=== PATIENT | male | born 1950 | race Caucasian/White ===

== ENCOUNTER 2017-08-27 18:47 | Inpatient (IN) ==
[2017-08-28] MEDS ORDERED: *HR* Heparin 5,000 UNIT/ML VIAL IVP ONE (08:32)
[2017-08-28] MEDS ORDERED: *HR* Heparin 5,000 UNIT/ML VIAL IVP PRN ×2 (08:32)
[2017-08-28] MEDS ORDERED: Heparin 25,000 UNIT/500 ML D5W 25,000 UNIT/500 ML BAG IVC SCH (08:45)
--- NOTE | 2017-08-28 12:23 | Event Note ---
Date of Encounter: 08/28/17 Time of Encounter: 12:18 She was seen and examined. I agree with the progress note as written by the resident physician The patient was transferred from [facility] with an episode of dizziness and was found to have SVT with rates up to the 180s. Was given adenosine 6 mg and then 12 mg. The patient's laboratory workup was significant for 0.05 for which he was started on a heparin drip and sent to our facility where cardiology was consulted. I do not see any repeat of his troponins. The patient has been complaining of dizziness yesterday but no chest pain. He denies feeling palpitations. He had outpatient workup done by his PCP and eventually ended up in the ED. Currently the patient is in normal sinus rhythm. GEN: NAD CVS: RRR. S1, S2, systolic murmur heard throughout 04/14 RESP: CTAB ABD: Soft, NT, ND, +BS EXT: No edema. 2+ DP. No rashes NEURO: Nonfocal We will keep on heparin drip for now. Hemodynamically stable and is in normal sinus rhythm patient had elevated creatinine from [facility] Stat troponins, BMP, magnesium level Echo done last month showed EF 60% with mild left ventricular diastolic dysfunction and moderate aortic stenosis Further recommendations from cardiology Patient can be discharged later if no further testing is warranted from cardiology standpoint
[2017-08-28 13:13] LABS: Hematocrit 37.3 % (37.5-50.1); Hemoglobin 12.3 g/dL (12.9-16.9); Mean Corpuscular Hemoglobin 28.3 pg (28.0-33.3); Mean Corpuscular Volume 85.9 fL (83.0-100.0); Mean Platelet Volume 9.7 fL (9.4-12.4); Platelet Count 177 K/mcL (140-400); Red Blood Count 4.34 M/mcL (4.19-5.50); Red Cell Distribution Width 15.3 % (11.5-14.5)
[2017-08-28 13:27] LABS: Heparin anti-factor XA UFH 0.29 IU/mL (0.30-0.70); INR 1.2; Prothrombin Time 13.6 Seconds (9.4-12.1)
[2017-08-28] MEDS ORDERED: 0.9 % Sodium Chloride 1,000 ML IVC SCH (13:30)
[2017-08-28 13:39] LABS: BUN/Creatinine Ratio 26 (6-26); Blood Urea Nitrogen 22 mg/dL (8-23); Calcium 8.8 mg/dL (8.6-10.3); Carbon Dioxide 27 mEq/L (23-29); Chloride 109 mEq/L (98-107); Glucose 82 mg/dL (70-105); Magnesium 2.2 mg/dL (1.6-2.6); Osmolality,Calculated 296 (280-300); Potassium 3.7 mEq/L (3.5-5.1); Sodium 142 mEq/L (136-145); eGFR For African Americans > 60 (> 60); eGFR For Non-African Americans > 60 (> 60)
--- NOTE | 2017-08-28 13:58 | Cardiology Consult Note ---
<Jerome Agarwal - Last Filed: 08/28/17 15:33> Date of Encounter: 08/28/17 - Attending Attestation I have personally performed a face to face evaluation on this patient. I have reviewed and agree with the care plan. 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 He sat down for several minutes, with resolution of symptoms, He returned to work symptoms reoccurred, and he had to sit down again, became diaphoretic, did not feel he could resume working, went home and elevated his feet with improvement in symptoms. He denies chest pain, pressure and palpitations. 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 He continued to feel dizzy, sought care in [facility], where initial EKG showed heart rate in the 150s, response to vagal manuvers, but did convert to NSR with IV adenosine. He is asymptomatic at present. ROS: reviewed PMH: Reviewed PE: pt seen and examined, agree with findings as documented. IMP/Plan: 1. SVT: provoked by dehydration, exposure to noxious exhaust, resolved with IV adenosine, has not reoccurred. 2. Elevated troponin: Minimal elevation of unclear significance, will order Lexiscan cardiolyte in AM to eval ischemic substrate. 3. - moderate at last echo, peak to peak gradient 27, may be contributing to symptoms, await result of stress imaging. Assessment and Plan Discussion w patient/family: The assessment and plan as outlined above was discussed with the patient and/or family members who expressed understanding and agreement. All questions were answered. Thank you for involving us in the care of your patient. Please call with any questions. History of Present Illness History of present illness: Mr. Salomon is a 67 year old male Medications and Allergies Atorvastatin [Lipitor] 40 mg PO HS 08/27/17 [History] Ferrous Sulfate [Iron] 325 mg PO DAILY 08/28/17 [History] 3 Allergy/AdvReac Type Severity Reaction Status Date / Time No Known Allergies Allergy Verified 08/27/17 19:13 All Systems Review: The remainder of the systems were reviewed and are negative Results 08/28/17 12:52 08/28/17 12:52 Lab Results 08/28/17 08/28/17 08/28/17 12:52 12:52 12:52 WBC 6.0 Hgb 12.3 L Hct 37.3 L Plt Count 177 INR 1.2 Sodium 142 Potassium 3.7 D Chloride 109 H Carbon Dioxide 27 BUN 22 Creatinine 0.84 Glucose 82 Calcium 8.8 Magnesium 2.2 Troponin I 0.10 H* TSH 1.568 <Teena Gordon L - Last Filed: 08/28/17 15:57> Date of Encounter: 08/28/17 Time of Encounter: 13:30 Assessment and Plan (1) Supraventricular tachycardia Current Visit: Yes Status: Acute Patient presented to the ED with complaints of fatigue, dizziness. Initial ECG demonstrated SVT. Failed vagal maneuvers, converted to NSR after IV adenosine. Will start BB. Continue to monitor telemetry overnight. (2) Elevated troponin Current Visit: Yes Status: Acute Troponin 0.05, 0.10, 0.13 in the setting of LAZARUS and SVT. Doubt ACS. No prior hx of CAD. Reports negative remote stress test >20 years ago. Discuss[address] with Dr. Agarwal, plan for non-exercise stress in AM. (3) Aortic stenosis Current Visit: Yes Status: Acute Known hx of moderate . Has been following with Dr. Manuel yearly. Yearly TTE shows stable . EF preserved. Qualifiers: Cardiac valve disease etiology: etiology unspecified Qualified Code(s): I35.0 - Nonrheumatic aortic (valve) stenosis Discussion w patient/family: The assessment and plan as outlined above was discussed with the patient and/or family members who expressed understanding and agreement. All questions were answered. Thank you for involving us in the care of your patient. Please call with any questions. History of Present Illness Consult date: 08/28/17 Requesting physician: Tay Ahn Consult reason: SVT Chief complaint: Fatigue, dizziness History of present illness: Mr. Salomon is a 67 year old male with PMHx significant for aortic stenosis and HLD who presented to the ED with complaints of dizziness and lightheadedness that started yesterday at work. He reports he left work early due to symptoms. Over the past week he has been performing more strenuous tasks at work and has felt more worn out. He notes that his blood pressure was low with SBP in the 90s and HR was in the 150's. Symptoms would improve when laying flat with his feet elevated. He continued to feel worse yesterday evening which prompted him to go to [place] [facility]. Upon arrival, ECG showed SVT, he failed vagal maneuvers and then was given adenosine which slowed HR and has maintained NSR. He was also noted to have LAZARUS upon admission and troponin was 0.05--> 0.13 -->0.10 Prior CV testing: TTE 07/21/17: LVEF 60%, heavily calcified AV leaflets, moderate (MG=27 mmHg ), mild MR, no PH Reports remote history of normal stress test. Past Med Surg Social Fam HX - Past Medical History Attestation: Yes The following information was validated with the patient. 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 [place] Psychiatric history: no psych history - Past Surgical History Additional surgical history: Right shoulder and knee - Social History Smoking Status: Former smoker Smokeless Tobacco Status: No Alcohol use: none Drug use: none - Family History Mother Living Status: Hx Family Cardiac Disorders: Yes ([place] with stents) All Systems Review: The remainder of the systems were reviewed and are negative - Cardiovascular Cardiovascular: as per HPI Physical Examination General: Conversant, No Apparent Distress HEENT: Atraumatic, Normocephaly, Mucus Membranes Moist Cardiac: Reg Rate and Rhythm, Normal S1 and S2 Lungs: Normal Breath Sounds Neuro: Alert and responsive Abdomen: Soft Skin: No rashes noted on visualized skin Musculoskeletal: No Chest Wall Tenderness Extremities: No Edema, Normal Pulses Results 08/28/17 12:52 08/28/17 12:52 Lab Results 08/28/17 08/28/17 08/28/17 12:52 12:52 12:52 WBC 6.0 Hgb 12.3 L Hct 37.3 L Plt Count 177 INR 1.2 Sodium 142 Potassium 3.7 D Chloride 109 H Carbon Dioxide 27 BUN 22 Creatinine 0.84 Glucose 82 Calcium 8.8 Magnesium 2.2 Troponin I 0.10 H* Active Medications Heparin Sodium (Porcine) (Heparin) 5,800 unit 70 unit/kg (5800 unit) IVP Q6HR PRN PRN Reason: SEE COMMENTS Stop: 02/27/18 08:33 Heparin Sodium (Porcine) (Heparin) 2,900 unit 35 unit/kg (2900 unit) IVP Q6H PRN PRN Reason: SEE COMMENTS Stop: 02/27/18 08:33 Heparin Sodium/Dextrose (Heparin 25,000 Unit/500 Ml D5w) 25,000 unit in 500 mls @ 23.242 mls/hr IVC .[id number] BHAVANA; 14 UNIT/KG/HR PRN Reason: Protocol Stop: 02/27/18 08:46 Sodium Chloride (0.9 % Sodium Chloride) 1,000 mls @ 100 mls/hr IVC .Q10H BHAVANA Stop: 08/28/17 23:29 - Imaging and Cardiology Echo: report reviewed Other Results: 12 hour tele: avg HR=70 SR. No events. - EKG Interpretation EKG results cardiology: personally reviewed
[2017-08-28 14:07] LABS: Thyroid Stimulating Hormone 1.568 mcIU/mL (0.340-5.600)
--- NOTE | 2017-08-28 16:38 | Internal Med Progress Note ---
Date of Encounter: 08/28/17 Time of Encounter: 16:36 - Assessment and plan (1) Supraventricular tachycardia Current Visit: Yes Status: Resolved Assessment and plan: 08/28- Patient was treated for SVT at [facility] and transferred to [facility] for cardiology consult. He is no longer in SVT and is asymptomatic. Heparin drip running. Last troponin 0.1. Cardiology plans for Stress test in AM. Will continue to trend labs and monitor patient. (2) Elevated troponin Current Visit: Yes Status: Acute Assessment and plan: 08/28- Last troponin 0.1. Patient asymptomatic, cardiology consulted, will continue to monitor. (3) Aortic stenosis Current Visit: Yes Status: Chronic Assessment and plan: 08/28- Patient has documented findings of aortic calcification and stenosis on echocardiogram. Intervention has not been recommended at this point. Qualifiers: Cardiac valve disease etiology: etiology unspecified Qualified Code(s): I35.0 - Nonrheumatic aortic (valve) stenosis - Time Spent With Patient Total time spent is greater than 50% in coordination of care (as documented) at patient's floor/unit and/or counseling patient: - Subjective Interval history: Patient was admitted for SVT that was converted to sinus rhythm with adenosine. Seen and examined this morning. Patient denies chest pain, shortness of breath, or lightheadedness this morning. He denies any other complaints or concerns. - Constitutional Vitals: Temp Pulse Resp BP Pulse Ox 97.7 F 93 20 103/64 98 08/28/17 16:25 08/28/17 16:25 08/28/17 16:25 08/28/17 16:25 08/28/17 16:25 Exam: Patient in no acute distress Alert and Oriented x 3 Heart in regular rate and rhythm, systolic murmur likely aortic stenosis, no mark or rub Lungs clear to auscultation Abdomen soft and non tender Skin warm and dry Legs non edematous Internal Medicine: Result - Labs CBC & Chem 7: 08/28/17 12:52 08/28/17 12:52 Labs: Short CBC 08/28/17 Range/Units 12:52 WBC 6.0 (4.3-11.1) K/mcL Hgb 12.3 L (12.9-16.9) g/dL Hct 37.3 L (37.5-50.1) % Plt Count 177 (140-400) K/mcL BMP 08/28/17 12:52 Sodium 142 Potassium 3.7 D Chloride 109 H Carbon Dioxide 27 BUN 22 Creatinine 0.84 Glucose 82 Calcium 8.8 Cardiac Enzymes 08/28/17 Range/Units 12:52 Troponin I 0.10 H* (< 0.04) ng/mL - ABG Interpretation ABG results: PT/INR, D-dimer PT 13.6 Seconds (9.4-12.1) H 08/28/17 12:52 Consult Discharge Plan - Plan Referrals: NONE,PCP [Primary Care Provider] -
[2017-08-28 17:52] LABS: Activated Partial Thrombo Time 33.3 Seconds (26.0-36.0); Heparin anti-factor XA UFH 0.04 IU/mL (0.30-0.70); INR 1.2
[2017-08-28 17:54] LABS: Basophils % 0.4 %; Eosinophils # 0.1 K/mcL (0.0-0.6); Eosinophils % 0.8 %; Hematocrit 34.9 % (37.5-50.1); Hemoglobin 11.6 g/dL (12.9-16.9); Immature Granulocytes % 0.1 % (0-4); Immature Platelets 2.1 % (1.1-6.1); Lymphocytes # 1.7 K/mcL (0.6-4.6); Lymphocytes % 22.9 %; Mean Corpuscular HGB Conc 33.2 g/dL (31.6-35.5); Mean Corpuscular Hemoglobin 28.2 pg (28.0-33.3); Mean Corpuscular Volume 84.9 fL (83.0-100.0); Mean Platelet Volume 9.6 fL (9.4-12.4); Monocytes # 1.2 K/mcL (0.0-1.3); Monocytes % 16.4 %; Neutrophils # 4.3 K/mcL (1.6-8.9); Platelet Count 166 K/mcL (140-400); Red Blood Count 4.11 M/mcL (4.19-5.50); Red Cell Distribution Width 15.2 % (11.5-14.5); Segmented Neutrophils % 59.4 %
[2017-08-28] MEDS: Metoprolol XL (24 HR) Succ 25 MG TAB.ER.24H PO SCH (19:00)
[2017-08-28 23:23] LABS: BUN/Creatinine Ratio 25 (6-26); Blood Urea Nitrogen 24 mg/dL (8-23); Calcium 8.5 mg/dL (8.6-10.3); Carbon Dioxide 22 mEq/L (23-29); Chloride 110 mEq/L (98-107); Glucose 88 mg/dL (70-105); Osmolality,Calculated 297 (280-300); Potassium 3.4 mEq/L (3.5-5.1); Sodium 142 mEq/L (136-145); eGFR For African Americans > 60 (> 60); eGFR For Non-African Americans > 60 (> 60)
[2017-08-28 23:24] LABS: Troponin I 0.12 ng/mL (< 0.04)
[2017-08-29] MEDS ORDERED: Regadenoson 0.4 MG/5 ML SYRINGE IVP ONE (06:47)
[2017-08-29 06:59] LABS: BUN/Creatinine Ratio 26 (6-26); Blood Urea Nitrogen 19 mg/dL (8-23); Calcium 8.4 mg/dL (8.6-10.3); Carbon Dioxide 25 mEq/L (23-29); Chloride 108 mEq/L (98-107); Glucose 93 mg/dL (70-105); Osmolality,Calculated 290 (280-300); Potassium 4.1 mEq/L (3.5-5.1); Sodium 139 mEq/L (136-145); eGFR For African Americans > 60 (> 60); eGFR For Non-African Americans > 60 (> 60)
[2017-08-29] MEDS: Metoprolol XL (24 HR) Succ 25 MG TAB.ER.24H PO SCH (12:13)
--- NOTE | 2017-08-29 14:08 | Cardiology Progress Note ---
Date of Encounter: 08/29/17 Time of Encounter: 14:06 Assessment and Plan (1) Abnormal stress test Current Visit: Yes Status: Acute Stress test today--Inferior wall artifact, unable to rule out ischemia. Final results have not yet crossed over, but made aware by reading residential program coordinator. Given SVT, troponin elevation and unable to rule out inferior ischemia on stress , recommend [facility]. R/B/A discussed. Pt agreeable. Plan to keep inpt for [facility] Thursday. Continue to follow. (2) Aortic stenosis Current Visit: Yes Status: Chronic Known hx of moderate . Has been following with Dr. Manuel yearly. Yearly TTE shows stable . EF preserved. Qualifiers: Cardiac valve disease etiology: etiology unspecified Qualified Code(s): I35.0 - Nonrheumatic aortic (valve) stenosis (3) SVT (supraventricular tachycardia) Current Visit: No Status: Acute Patient presented to the ED with complaints of fatigue, dizziness. Initial ECG demonstrated SVT. Failed vagal maneuvers, converted to NSR after IV adenosine. Started BB. No recurrence noted on telemetry. (4) Elevated troponin Current Visit: Yes Status: Acute Troponin 0.05, 0.10, 0.13 in the setting of LAZARUS and SVT. Doubt ACS. No prior hx of CAD. Reports negative remote stress test >20 years ago. Completed stress test today--cannot rule out inferior ischemia. Plan for [facility] Thursday, as above. Discussion w patient/family: The assessment and plan as outlined above was discussed with the patient and/or family members who expressed understanding and agreement. All questions were answered. Thank you for involving us in the care of your patient. Please call with any questions. I will discuss all the above with Dr. Agarwal and make changes as necessary. Subjective Principal diagnosis: SVT, elevated troponin Interval history: Stress test today--paged by reading residential program coordinator that there is inferior wall artifact, unable to rule out ischemia in this area. Pt denies chest pain, dyspnea or palpitations overnight. No recurrent SVT noted on tele. Objective Vital Signs, Last 4 Hours Temp Pulse Resp BP Pulse Ox 08/29/17 10:52 98.1 F 62 16 126/77 97 Vital Signs Temp Pulse Resp BP Pulse Ox 08/29/17 10:52 98.1 F 62 16 126/77 97 08/29/17 08:01 98.1 F 66 16 114/74 96 08/29/17 03:35 98.6 F 75 16 107/65 96 08/28/17 23:23 97.8 F 74 16 89/53 96 08/28/17 19:00 98.5 F 70 16 93/61 97 08/28/17 16:25 97.7 F 93 20 103/64 98 Intake and Output 08/28/17 08/29/17 08/29/17 23:59 07:59 15:59 Intake Total 10 10 0 / 0 0 / 0 Output Total 250 / 250 Balance -240 / -240 0 / 0 0 / 0 Intake: Oral 0 / 0 Other 10 / 10 0 / 0 Output: Urine 250 / 250 Other: Meal NPO Percent of Meal Consumed 0% Weight 83.007 kg Patient Weight 08/29/17 23:59 Weight 83.007 kg General: Conversant, No Apparent Distress HEENT: Atraumatic, Normocephaly, Mucus Membranes Moist Neck: No JVD, Normal carotid pulses Cardiac: Reg Rate and Rhythm, Normal S1 and S2, Other (2/6 LELAND) Lungs: Normal Breath Sounds, No Wheeze, Rales, Rhonchi Neuro: Alert and responsive, No focal deficits noted Abdomen: Soft, Non-Tender Skin: No rashes noted on visualized skin Musculoskeletal: No Chest Wall Tenderness Extremities: No Clubbing, No Cyanosis, No Edema, Normal Pulses Results 08/28/17 12:52 08/29/17 06:24 Lab Results 08/28/17 08/28/17 08/28/17 04:50 04:50 06:43 WBC 7.2 Hgb 11.6 L D Hct 34.9 L Plt Count 166 INR 1.2 APTT 33.3 Sodium 142 Potassium 3.4 L D Chloride 110 H Carbon Dioxide 22 L BUN 24 H Creatinine 0.96 Glucose 88 Calcium 8.5 L Magnesium Troponin I 0.12 H* TSH 08/28/17 08/29/17 08/29/17 12:52 06:24 10:11 WBC Hgb Hct Plt Count INR APTT Sodium 142 139 Potassium 3.7 4.1 Chloride 109 H 108 H Carbon Dioxide 27 25 BUN 22 19 Creatinine 0.84 0.73 Glucose 82 93 Calcium 8.8 8.4 L Magnesium 2.2 Troponin I 0.10 H* 0.06 H* TSH 1.568 Short CBC 08/28/17 Range/Units 04:50 WBC 7.2 (4.3-11.1) K/mcL Hgb 11.6 L D (12.9-16.9) g/dL Hct 34.9 L (37.5-50.1) % Plt Count 166 (140-400) K/mcL Neutrophils # 4.3 (1.6-8.9) K/mcL BMP 08/29/17 08/28/17 08/28/17 Range/Units 06:24 12:52 04:50 Sodium 139 142 142 (136-145) mEq/L Potassium 4.1 3.7 3.4 L D (3.5-5.1) mEq/L Chloride 108 H 109 H 110 H (98-107) mEq/L Carbon Dioxide 25 27 22 L (23-29) mEq/L BUN 19 22 24 H (8-23) mg/dL Creatinine 0.73 0.84 0.96 (0.70-1.30) mg/dL Glucose 93 82 88 (70-105) mg/dL Calcium 8.4 L 8.8 8.5 L (8.6-10.3) mg/dL Cardiac Enzymes 08/29/17 08/28/17 08/28/17 Range/Units 10:11 12:52 04:50 Troponin I 0.06 H* 0.10 H* 0.12 H* (< 0.04) ng/mL Active Medications Metoprolol Succinate (Toprol Xl) 25 mg PO DAILY BHAVANA Stop: 02/27/18 16:01 Last Admin: 08/29/17 12:13 Dose: 25 mg - Imaging and Cardiology Stress Test: report reviewed - EKG Interpretation EKG results cardiology: other (12 hr tele AVG HR 72, SR, no significant pauses or arrhythmias.) Consult Discharge Plan - Plan Referrals: NONE,PCP [Non-Partnered Physician] -
--- NOTE | 2017-08-29 14:20 | Event Note ---
Date of Encounter: 08/29/17 Time of Encounter: 14:16 She was seen and examined. I agree with the progress note as written by the resident physician The patient was transferred from [facility] with an episode of dizziness and was found to have SVT with rates up to the 180s. Was given adenosine 6 mg and then 12 mg. The patient's laboratory workup was significant for elevated trops at 0.05 for which he was started on a heparin drip and sent to our facility where cardiology was consulted. Itrops here at .12, .10, .06. The patient has been complaining of dizziness but no chest pain. He denies feeling palpitations. He had outpatient workup done by his PCP and eventually ended up in the ED. Currently the patient is in normal sinus rhythm. GEN: NAD CVS: RRR. S1, S2, systolic murmur heard throughout 04/14 RESP: CTAB ABD: Soft, NT, ND, +BS EXT: No edema. 2+ DP. No rashes NEURO: Nonfocal Off heparin drip. Will discuss with cardiology regarding restarting. Stress test inconclusive. plans for [facility] on Thursday. Hemodynamically stable and is in normal sinus rhythm Started on BB by cardiology. patient had elevated creatinine from [facility] but normalized here. Echo done last month showed EF 60% with mild left ventricular diastolic dysfunction and moderate aortic stenosis
--- NOTE | 2017-08-29 15:29 | Internal Med Progress Note ---
Date of Encounter: 08/29/17 Time of Encounter: 15:26 - Assessment and plan (1) Abnormal stress test Current Visit: Yes Status: Acute Assessment and plan: 08/29- Patient had stress test this AM that showed an inferior wall artifact, unable to rule out ischemia. Cardiology has recommended left heart catheterization on Thursday. Patient is now on metoprolol and Lovenox. (2) Aortic stenosis Current Visit: Yes Status: Chronic Assessment and plan: Patient has documented findings of aortic calcification and stenosis on echocardiogram. Intervention has not been recommended at this point. Qualifiers: Cardiac valve disease etiology: etiology unspecified Qualified Code(s): I35.0 - Nonrheumatic aortic (valve) stenosis - Time Spent With Patient Total time spent is greater than 50% in coordination of care (as documented) at patient's floor/unit and/or counseling patient: - Subjective Interval history: Patient had stress test this morning. Cardiology could not rule out ischemia so they proposed left heart catheterization Thursday, patient agreed. Patient has no complaints today. - Constitutional Vitals: Temp Pulse Resp BP Pulse Ox 98.1 F 62 16 126/77 97 08/29/17 10:52 08/29/17 10:52 08/29/17 10:52 08/29/17 10:52 08/29/17 10:52 Exam: Patient in no acute distress Alert and oriented x 3 Heart in regular rate and rhythm, systolic murmur 3/6 heard throughout, no mark Lungs clear to auscultation without wheeze, rhonchi, or diminished cortez Abdomen soft and non tender Legs non edematous Internal Medicine: Result - Labs CBC & Chem 7: 08/28/17 12:52 08/29/17 06:24 Labs: Short CBC 08/28/17 Range/Units 04:50 WBC 7.2 (4.3-11.1) K/mcL Hgb 11.6 L D (12.9-16.9) g/dL Hct 34.9 L (37.5-50.1) % Plt Count 166 (140-400) K/mcL Neutrophils # 4.3 (1.6-8.9) K/mcL BMP 08/28/17 08/28/17 08/29/17 04:50 12:52 06:24 Sodium 142 142 139 Potassium 3.4 L D 3.7 4.1 Chloride 110 H 109 H 108 H Carbon Dioxide 22 L 27 25 BUN 24 H 22 19 Creatinine 0.96 0.84 0.73 Glucose 88 82 93 Calcium 8.5 L 8.8 8.4 L Cardiac Enzymes 08/28/17 08/28/17 08/29/17 Range/Units 04:50 12:52 10:11 Troponin I 0.12 H* 0.10 H* 0.06 H* (< 0.04) ng/mL - ABG Interpretation ABG results: PT/INR, D-dimer PT 13.6 Seconds (9.4-12.1) H 08/28/17 12:52 Consult Discharge Plan - Plan Referrals: NONE,PCP [Non-Partnered Physician] -
[2017-08-29] MEDS ORDERED: Acetaminophen 325 MG TABLET PO PRN (16:29)
[2017-08-29] MEDS: *HR* Enoxaparin 80 MG/0.8 ML SYRINGE SQ SCH (17:35)
[2017-08-30 05:27] LABS: Basophils % 0.5 %; Eosinophils # 0.2 K/mcL (0.0-0.6); Eosinophils % 2.6 %; Hematocrit 35.7 % (37.5-50.1); Hemoglobin 12.2 g/dL (12.9-16.9); Immature Granulocytes % 0.3 % (0-4); Lymphocytes # 1.4 K/mcL (0.6-4.6); Lymphocytes % 20.6 %; Mean Corpuscular HGB Conc 34.2 g/dL (31.6-35.5); Mean Corpuscular Hemoglobin 29.1 pg (28.0-33.3); Mean Corpuscular Volume 85.2 fL (83.0-100.0); Mean Platelet Volume 9.9 fL (9.4-12.4); Monocytes # 1.4 K/mcL (0.0-1.3); Monocytes % 20.9 %; Neutrophils # 3.6 K/mcL (1.6-8.9); Platelet Count 169 K/mcL (140-400); Red Blood Count 4.19 M/mcL (4.19-5.50); Red Cell Distribution Width 15.1 % (11.5-14.5); Segmented Neutrophils % 55.1 %
[2017-08-30] MEDS: *HR* Enoxaparin 80 MG/0.8 ML SYRINGE SQ SCH ×2 (05:28→17:29)
[2017-08-30 06:16] LABS: Platelet Estimate Normal (Normal)
[2017-08-30 06:31] LABS: BUN/Creatinine Ratio 21 (6-26); Blood Urea Nitrogen 15 mg/dL (8-23); Calcium 8.5 mg/dL (8.6-10.3); Carbon Dioxide 25 mEq/L (23-29); Chloride 108 mEq/L (98-107); Glucose 95 mg/dL (70-105); Magnesium 1.9 mg/dL (1.6-2.6); Osmolality,Calculated 289 (280-300); Potassium 3.7 mEq/L (3.5-5.1); Sodium 139 mEq/L (136-145); eGFR For African Americans > 60 (> 60); eGFR For Non-African Americans > 60 (> 60)
--- NOTE | 2017-08-30 07:48 | Event Note ---
Date of Encounter: 08/30/17 Time of Encounter: 07:47 - Cardiology Event Note Labs and vitals stable. On therapeutic Lovenox given mild troponin elevation and abnormal stress test. NPO after midnight. [facility] tomorrow. R/B/A discussed.
[2017-08-30 07:51] LABS: VBG Ionized Calcium 1.12 mmol/L (1.15-1.35)
[2017-08-30] MEDS: Metoprolol XL (24 HR) Succ 25 MG TAB.ER.24H PO SCH (08:43)
--- NOTE | 2017-08-30 09:01 | Event Note ---
Date of Encounter: 08/30/17 Time of Encounter: 09:00 Patient was seen and examined. I agree with the progress note as written by the resident physician The patient was transferred from [facility] with an episode of dizziness and was found to have SVT with rates up to the 180s. Was given adenosine 6 mg and then 12 mg. The patient's laboratory workup was significant for elevated trops at 0.05 for which he was started on a heparin drip and sent to our facility where cardiology was consulted. Itrops here at .12, .10, .06. The patient has been complaining of dizziness but no chest pain. He denies feeling palpitations. He had outpatient workup done by his PCP and eventually ended up in the ED. Currently the patient is in normal sinus rhythm. GEN: NAD CVS: RRR. S1, S2, systolic murmur heard throughout 04/14 RESP: CTAB ABD: Soft, NT, ND, +BS EXT: No edema. 2+ DP. No rashes NEURO: Nonfocal On Lovenox therapeutic dose. Will stop lovenox after tonight's dose in anticipation for [facility] tomorrow morning. Stress test inconclusive. plans for [facility] tomorrow Hemodynamically stable and is in normal sinus rhythm Started on BB by cardiology. patient had elevated creatinine from [facility] but normalized here. Echo done last month showed EF 60% with mild left ventricular diastolic dysfunction and moderate aortic stenosis
--- NOTE | 2017-08-30 10:48 | Internal Med Progress Note ---
Date of Encounter: 08/30/17 Time of Encounter: 10:40 - Assessment and plan (1) Abnormal stress test Current Visit: Yes Status: Acute Assessment and plan: 08/29- Patient had stress test this AM that showed an inferior wall artifact, unable to rule out ischemia. Cardiology has recommended left heart catheterization on Thursday. Patient is now on metoprolol and Lovenox. 08/30- Patient still anticipating [facility] tomorrow. We will continue with metoprolol and lovenox for now, stop lovenox this evening for procedure (2) SVT (supraventricular tachycardia) Current Visit: Yes Status: Resolved Assessment and plan: Patient was originally admitted for SVT which was converted to sinus with adenosine. He has been in sinus rhythm since admission. Will continue to monitor. (3) Aortic stenosis Current Visit: Yes Status: Chronic Assessment and plan: Patient has documented findings of aortic calcification and stenosis on echocardiogram. Intervention has not been recommended at this point. Qualifiers: Cardiac valve disease etiology: etiology unspecified Qualified Code(s): I35.0 - Nonrheumatic aortic (valve) stenosis - Time Spent With Patient Total time spent is greater than 50% in coordination of care (as documented) at patient's floor/unit and/or counseling patient: - Subjective Interval history: Patient scheduled for left heart catheterization tomorrow. He denies any complaints this morning, no chest pain, no shortness of breath. - Constitutional Vitals: Temp Pulse Resp BP Pulse Ox 98.4 F 59 16 126/82 95 08/30/17 07:57 08/30/17 07:57 08/30/17 07:57 08/30/17 07:57 08/30/17 08:46 Exam: Patient in no acute distress Alert and oriented x 3 Heart in regular rate and rhythm, with 3/6 systolic murmur, no mark Lungs are clear to auscultation without wheeze, rhonchi, or diminished cortez Abdomen soft and non tender Sin warm and dry Legs are non-edematous and without skin changes Internal Medicine: Result - Labs CBC & Chem 7: 08/30/17 05:08 08/30/17 05:08 Labs: Short CBC 08/30/17 Range/Units 05:08 WBC 6.6 (4.3-11.1) K/mcL Hgb 12.2 L (12.9-16.9) g/dL Hct 35.7 L (37.5-50.1) % Plt Count 169 (140-400) K/mcL Neutrophils # 3.6 (1.6-8.9) K/mcL BMP 08/30/17 05:08 Sodium 139 Potassium 3.7 Chloride 108 H Carbon Dioxide 25 BUN 15 Creatinine 0.71 Glucose 95 Calcium 8.5 L Cardiac Enzymes 08/29/17 Range/Units 10:11 Troponin I 0.06 H* (< 0.04) ng/mL - ABG Interpretation ABG results: PT/INR, D-dimer PT 13.6 Seconds (9.4-12.1) H 08/28/17 12:52 Consult Discharge Plan - Plan Referrals: NONE,PCP [Non-Partnered Physician] -
[2017-08-31 05:50] LABS: Basophils % 0.5 %; Eosinophils # 0.2 K/mcL (0.0-0.6); Eosinophils % 4.3 %; Hematocrit 37.2 % (37.5-50.1); Hemoglobin 12.7 g/dL (12.9-16.9); Immature Granulocytes % 0.2 % (0-4); Lymphocytes # 1.4 K/mcL (0.6-4.6); Lymphocytes % 25.2 %; Mean Corpuscular HGB Conc 34.1 g/dL (31.6-35.5); Mean Corpuscular Hemoglobin 28.6 pg (28.0-33.3); Mean Corpuscular Volume 83.8 fL (83.0-100.0); Mean Platelet Volume 9.8 fL (9.4-12.4); Monocytes # 1.1 K/mcL (0.0-1.3); Monocytes % 19.1 %; Neutrophils # 2.8 K/mcL (1.6-8.9); Platelet Count 192 K/mcL (140-400); Red Blood Count 4.44 M/mcL (4.19-5.50); Segmented Neutrophils % 50.7 %
[2017-08-31 06:08] LABS: Platelet Estimate Normal (Normal); Reactive Lymphocytes Present (Not Present)
[2017-08-31 06:11] LABS: BUN/Creatinine Ratio 19 (6-26); Blood Urea Nitrogen 14 mg/dL (8-23); Calcium 9.5 mg/dL (8.6-10.3); Carbon Dioxide 29 mEq/L (23-29); Chloride 104 mEq/L (98-107); Glucose 101 mg/dL (70-105); Osmolality,Calculated 285 (280-300); Potassium 4.1 mEq/L (3.5-5.1); Sodium 137 mEq/L (136-145); eGFR For African Americans > 60 (> 60); eGFR For Non-African Americans > 60 (> 60)
[2017-08-31] MEDS: Metoprolol XL (24 HR) Succ 25 MG TAB.ER.24H PO SCH (08:01)
[2017-08-31] MEDS ORDERED: *HR* Heparin 5,000 UNIT/ML VIAL SQ SCH (09:00)
--- NOTE | 2017-08-31 09:51 | Event Note ---
Date of Encounter: 08/31/17 Time of Encounter: 09:49 Patient was seen and examined. I agree with the progress note as written by the resident physician No acute events. He is awaiting left heart catheterization today. The patient was transferred from [facility] with an episode of dizziness and was found to have SVT with rates up to the 180s. Was given adenosine 6 mg and then 12 mg. The patient's laboratory workup was significant for elevated trops at 0.05 for which he was started on a heparin drip and sent to our facility where cardiology was consulted. Itrops here at .12, .10, .06. The patient has been complaining of dizziness but no chest pain. He denies feeling palpitations. He had outpatient workup done by his PCP and eventually ended up in the ED. Currently the patient is in normal sinus rhythm. GEN: NAD CVS: RRR. S1, S2, systolic murmur heard throughout 3/6 RESP: CTAB ABD: Soft, NT, ND, +BS EXT: No edema. 2+ DP. No rashes NEURO: Nonfocal Plan for LHC today. Stress test was inconclusive Hold lovenox this am. Hemodynamically stable and is in normal sinus rhythm Started on BB by cardiology. patient had elevated creatinine from [facility] but normalized here. Echo done last month showed EF 60% with mild left ventricular diastolic dysfunction and moderate aortic stenosis Discharge planning is pending [facility] findings in one cardiology clearance and. Possibly today versus tomorrow.
--- NOTE | 2017-08-31 11:33 | Internal Med Progress Note ---
Date of Encounter: 08/31/17 Time of Encounter: 12:27 - Assessment and plan (1) Abnormal stress test Current Visit: Yes Status: Acute Assessment and plan: 08/29- Patient had stress test this AM that showed an inferior wall artifact, unable to rule out ischemia. Cardiology has recommended left heart catheterization on Thursday. Patient is now on metoprolol and Lovenox. 08/30- Patient still anticipating C tomorrow. We will continue with metoprolol and lovenox for now, stop lovenox this evening for procedure 08/31- LHC scheduled today, lovenox held this AM. We will refer to cardiology recommendation for discharge today or tomorrow based on course of LHC (2) SVT (supraventricular tachycardia) Current Visit: Yes Status: Resolved Assessment and plan: Patient was originally admitted for SVT which was converted to sinus with adenosine. He has been in sinus rhythm since admission. Will continue to monitor. (3) Aortic stenosis Current Visit: Yes Status: Chronic Assessment and plan: Patient has documented findings of aortic calcification and stenosis on echocardiogram. Intervention has not been recommended at this point. Qualifiers: Cardiac valve disease etiology: etiology unspecified Qualified Code(s): I35.0 - Nonrheumatic aortic (valve) stenosis - Time Spent With Patient Total time spent is greater than 50% in coordination of care (as documented) at patient's floor/unit and/or counseling patient: - Subjective Interval history: Patient has no complaints at this time. He denies chest pain or shortness of breath. He is aware of and agrees with the plan for left heart catheterization today. - Constitutional Vitals: Temp Pulse Resp BP Pulse Ox 98.0 F 61 16 116/76 96 08/31/17 07:53 08/31/17 07:53 08/31/17 07:53 08/31/17 07:53 08/31/17 07:53 Exam: Patient in no acute distress Alert and oriented x 3 Heart in regular rate and rhythm without gallop, positive for 3/6 systolic murmur Lungs clear to auscultation without wheeze, rhonchi, or diminished lung cortez Abdomen soft and non tender Skin warm and dry Legs non edematous Internal Medicine: Result - Labs CBC & Chem 7: 08/31/17 05:27 08/31/17 05:27 Labs: Short CBC 08/31/17 Range/Units 05:27 WBC 5.6 (4.3-11.1) K/mcL Hgb 12.7 L (12.9-16.9) g/dL Hct 37.2 L (37.5-50.1) % Plt Count 192 (140-400) K/mcL Neutrophils # 2.8 (1.6-8.9) K/mcL BMP 08/31/17 05:27 Sodium 137 Potassium 4.1 Chloride 104 Carbon Dioxide 29 BUN 14 Creatinine 0.72 Glucose 101 Calcium 9.5 - ABG Interpretation ABG results: PT/INR, D-dimer PT 13.6 Seconds (9.4-12.1) H 08/28/17 12:52 Consult Discharge Plan - Plan Referrals: NONE,PCP [Non-Partnered Physician] -
[2017-08-31 11:38] VITALS: BP 121/78
[2017-08-31] MEDS ORDERED: *HR* Heparin 10,000 UNIT/10 ML VIAL ONE (12:12)
[2017-08-31] MEDS ORDERED: Heparin 1,000 UNITS/500 mL 500 ML ONE (12:12)
[2017-08-31] MEDS ORDERED: Verapamil 5 MG/2 ML VIAL ONE (12:12)
[2017-08-31] MEDS ORDERED: 0.9 % Sodium Chloride 1,000 ML ONE ×2 (12:13→12:41)
[2017-08-31] MEDS ORDERED: ISOVUE-370 200 ML INFUS..BTL IV ONE (12:13)
[2017-08-31] MEDS ORDERED: Nitroglycerin 1,000 MCG/10 ML VIAL IV ONE (12:13)
[2017-08-31] MEDS ORDERED: *HR* FentaNYL (PF) 100 MCG/2 ML VIAL ONE (12:41)
[2017-08-31] MEDS ORDERED: *HR* Midazolam HCl 5 MG/5 ML VIAL IVP ONE (12:41)
--- NOTE | 2017-08-31 13:03 | Pre-Sedation Evaluation ---
Pre-sedation evaluation - Pre-sedation checklist Date of procedure: 08/31/17 Procedure: [facility] Recent Vitals: Last Vital Signs Temp 97.7 F 08/31/17 11:35 Pulse 67 08/31/17 11:35 Resp 16 08/31/17 11:35 BP 121/78 08/31/17 11:35 Pulse Ox 96 08/31/17 11:35 H&P (including ROS) documented in medical record: Yes Previous reaction to sedatives/anesthetics: No Dietary Status: NPO after Midnight Airway Assessment: Patient can open mouth completely, TMJ function normal ASA Classification *see protocol: CLASS II-Mild systemic disease Plan of Care: Pt appropriate candidate for procedure/moderate/conscious sedation , Risks/benefits of procedure/sedation discussed w/ patient/family Cardiac Registry (Cardio Only) - Functional Capacity Functional Capacity: >=4 METS with symptoms - Clincal Frailty Scale Clinical Frailty Scale: Managing Well
[2017-08-31] MEDS ORDERED: Ondansetron 4 MG/2 ML VIAL IVP PRN (13:18)
--- NOTE | 2017-08-31 13:31 | Event Note ---
Date of Encounter: 08/31/17 Time of Encounter: 13:29 - Cardiology Event Note [facility] no significant CAD. No intervention. Final report pending. Cardiology signing off. Reconsult PRN. Continue Toprol XL for SVT. Continue outpt surveillance of moderate . From cardiac standpoint, okay to be d/c'd home later today once post cath orders are complete. Will coordinate outpt follow-up in 2-3 weeks. RISK FACTORS: STOP SMOKING: If you smoke, STOP. Smoking or tobacco use significantly increases your risk of heart disease because nicotine causes the arteries to narrow or constrict. It also causes fats to stick to the artery. Your chances of having a heart attack are greatly increased if you continue to smoke. For more information, call the education line for smoking cessation 5-326-CRBLYKM EAT A LOW FAT/CHOLESTEROL/SODIUM DIET: This diet may help reduce your chances of having a heart attack. LIFTING: With affected extremity: Avoid bending, pushing off and lifting more than 2 pounds for 24 hours The following 48 hours, avoid lifting anything more than 5 pounds Avoid strenuous activity or repetitive motions ACTIVITY: You may walk or climb stairs as tolerated You can resume sexual activity as tolerated In general, you are encouraged to engage in a minimum of 30 minutes or more of moderate intensity physical activity, such as brisk walking, daily or at least 3 -4 times weekly BATHING Do not submerge the site into water (bath tub, hot tub, swimming pool, dishes) for 1 week. This can be a source for infection into the blood stream. You may shower after 24 hours SITE CARE: After 24 hours, you may remove the dressing and leave the site open to air. Keep the site clean and dry. Clean gently and pat dry. You can expect bruising and tenderness that gradually resolve within a week or two. Return to work as instructed per your physician Resume driving as instructed per physician Keep all scheduled follow up appointments Resume medications as instructed IMPORTANT: If prescribed a Platelet Aggregation Inhibitor such as, Plavix, Brilinta or Effient: Duration of therapy is minimum one year These medications are often used in combination with Aspirin in prevention of future heart attacks Never discontinue unless consult with your Clinical Trials Nurse STROKE (CVA) Risk factors for a stroke are: Age, cigarette smoking, diabetes, excessive alcohol consumption, family history, high blood pressure, overweight, physical inactivity, prior stroke, heart attack, diagnosis of carotid artery stenosis or other artery disease. Warning signs: Sudden numbness or weakness of the face, arm or leg; especially on one side of the body, sudden confusion, trouble speaking or understanding, sudden trouble seeing in one or both eyes, sudden trouble walking, dizziness, loss of balance or coordination, sudden severe headache with no cause. Call 911 or go to the Emergency Room. CONGESTIVE HEART FAILURE: If you have been diagnosed with Congestive Heart Failure (CHF) and your symptoms return, make an appointment with your physician Weigh yourself daily. Notify your physician if you have a weight gain of two or more pounds in one day or five or more pounds in one week. If you experience any difficulty breathing, please call 911 BLEEDING: Although the risk of bleeding is minimal, it can happen. If you have any bleeding from the site, apply firm pressure above the puncture site for 10-15 minutes. If the bleeding does not stop, continue manual pressure and call 911 Contact [facility] ( ) if: You develop a fever greater than 101 degrees Fahrenheit Your site becomes reddened or has any drainage You have an increase in pain or burning at the site or if a large knot forms at the site. If you experience chest pain, shortness of breath, dizziness, or extreme tiredness, stop the activity and rest. Please notify [facility] office if you experience any of these symptoms and they are not relieved by rest please call 911!
--- NOTE | 2017-08-31 13:34 | Invasive Diagnostic Lab Proc ---
Name: Torres Salomon Date of Study: 08/31/2017 Date: 1950 Ht: 68.9in Medical Record#: [id number] Age: 67 Wt: 191.80lb Gender: Male BSA: 2.03 Order #: [id number] BMI: 28.41 Physicians Procedure Physician: Sae Herrera MD, [facility] Referring MD: Referring MD: Staff Name Position Time In Christophe Acosta RN Monitor 12:32 PM Lance Sweeney RT (R) Scrub 12:32 PM Dominique Moraes RN Feltmaker And Weigher 12:32 PM Indications Indication Abnormal Test - Stress Procedures Performed Procedure CORONARY ARTERY ANGIO S&I Pre-Procedure Checklist Informed consent is complete signed and on chart. H&P is on chart. ID band is on and ID verified with patient. Patient NPO for procedure The procedure was described for the patient and questions were answered. ECG is on chart. Plan of Care Patient will tolerate the procedure without complications. Adequate level of comfort will be maintained. Hemodynamics will remain stable Patient will recover from procedure without complications. Respiratory function will be maintained. Cardiac rhythm will remain stable. Patient temperature will be maintained. Patient and/or family have verbalized understanding of the procedure. Patient Education Chief Complaint/Reason for Test: Cardiac Cath Developmental Category: Geriatric (65+ years) Developmentally Appropriate for Age: Yes Learning Barriers: None Education Needs: Procedure Education Method: Verbal Information Taught: Cardiac Cath Educational Evaluation: Able to repeat information Intravenous Access Time IV Size Location DC'd Fluid/Drip Rate Units RN 18g 1 1/4" Patent On Arrival 0.9NaCl 20g 1 1/4" Patent On Arrival Allergies No Known Allergies NKDA Vital Signs Time BP (mmHg) HR (bpm) O2 Sat. RR (bpm) LOC 12:47 PM / % 5 = Fully awake and oriented or at pre-proc level 12:47 PM / % 4 = Oriented but drowsy 12:52 PM 132 / 78 64 96 % 24 12:56 PM 116 / 75 74 98 % 9 01:01 PM 98 / 75 71 88 % 14 01:06 PM 106 / 70 71 95 % 12 01:11 PM 93 / 68 76 94 % 19 01:16 PM 93 / 71 75 95 % 22 Procedural Medications Time Medication Dose Units Method Given By 12:48 PM Oxygen 2 L/min nasal cannula 12:55 PM Versed 2 mg Intravenous Dominique Moraes RN 12:55 PM Fentanyl 50 mcg Intravenous Dominique Moraes RN 01:06 PM Lidocaine 2% 0.5 ml Subcutaneous Sae Herrera MD, [facility] 01:08 PM Heparin 4000 units Nitroglycerin 200 mcg Verapamil 2.5 mg Intraarterial Sae Herrera MD, [facility] ASA Classification: CLASS II- Mild systemic disease (i.e. well-controlled diabetes, hypertension, asthma, cigarette smoking) Denice Score Preprocedure Postprocedure Activity 2- Moves 4 extremities sustained head lift Activity Circulation 2- SBP +/= 20 points of pre-anesthetic level Circulation Consciousness 2- Awake and alert oriented x 3 Consciousness O2 Saturation 2- Able to maintain O2 satruation of 92% on room air O2 Saturation Respiratory 2- Able to deep breathe and cough well Respiratory Total Score 10 Total Score Contrast Agent: Isovue Diagnostic Contrast: 57 ml Total Contrast: 57 ml Fluoro Dose: 16 mGy Procedure Log Time Note Enter By 12:32 PM Christophe Acosta RN Position: Monitor Time in: 12:32 cedwards 12:32 PM Lance Sweeney (R) Position: Scrub Time in: 12:32 cedwards 12:32 PM Dominique Moraes RN Position: Feltmaker And Weigher Time in: 12:32 cedwards 12:47 PM Pt arrived to slab polisher 1 at 12:47 cedwards 12:47 PM Patient charges- Angio tray pack, Navilyst 3mm J, Pulse Oximetry and ACIST tubing and transducer cedwards 12:47 PM Hair removed from procedure site in procedure lab using clippers. Right groin/ Right radial prepped with Chloraprep by Lance Sweeney (R), then patient was draped. Skin intact. cedwards 12:47 PM Physician arrived 12:47 cedwards 12:47 PM ASA Class CLASS II- Mild systemic disease (i.e. well-controlled diabetes, hypertension, asthma, cigarette smoking) cedwards 12:47 PM Awais and greet completed cedwards 12:47 PM Sign in performed according to hospital policy. cedwards 12:47 PM Procedure start 12:47 cedwards 12:47 PM Time: 12:47 Patient comfortable and pain free: Yes cedwards 12:47 PM Time: 12:47LOC: 5 = Fully awake and oriented or at pre-proc level cedwards 12:48 PM Time: 12:48 Oxygen on at 2 L/min per nasal cannula by cedwards 12:51 PM Vitals capture started with the following parameters, Patient=Adult, Interval=5 min, Initial Dppwqzax=470 mmHg, Deflation Rate=3 mmHg, Cuff placed on Right Arm 12:51 PM CathStat 12:51 PM Case Start 12:51 PM NIBP STAT measurement started. 12:51 PM Recorded ECG: HR=69 Condition=Condition 1 12:52 PM HR=64 bpm, WACQ=884/78 mmhg, SpO2=96.0 %, Resp=24 B/min 12:55 PM Time: 12:55 Versed 2 mg Intravenous Given by Dominique Moraes RN cedwards 12:55 PM Time: 12:55 Fentanyl 50 mcg Intravenous Given by Dominique Moraes RN cedwards 12:56 PM HR=74 bpm, ETXI=147/75 mmhg, SpO2=98.0 %, Resp=9 B/min, EtCO2=32 mmHg 12:57 PM Recorded ECG: HR=76 Condition=Condition 1 12:58 PM Pressure channel 1 zeroed. 01:01 PM HR=71 bpm, NIBP=98/75 mmhg, SpO2=88.0 %, Resp=14 B/min 01:03 PM Time: 12:47LOC: 4 = Oriented but drowsy cedwards 01:03 PM Time: 12:47 Patient comfortable and pain free: Yes cedwards 01:06 PM Clinical Presentation: Unstable angina cedwards 01:06 PM HR=71 bpm, PAKJ=485/70 mmhg, SpO2=95.0 %, Resp=12 B/min, EtCO2=31 mmHg 01:06 PM Time out performed according to hospital policy cedwards :07 PM Time: 13:06 0.5 ml Lidocaine 2% to right radial Subcutaneous Given by Sae Herrera MD, FACC cedwards 01:07 PM Access obtained by percutaneous puncture. 5/6Fr 11cm Terumo Glidesheath sheath placed in right Radial artery. [id number] cedwards 01:08 PM Time: 13:08 Patient given 4,000 units Heparin, 200 mcg Nitroglycerin, and 2.5 mg Verapamil Intraarterial by Sae Herrera MD, FACC. This is given to reduce risk of vessel spasm and thrombosis. cedwards 01:08 PM 5Fr TIG catheter inserted over the wire DNC cedwards 01:08 PM 0.035 145cm Navilyst 3mmJ wire [id number] cedwards 01:11 PM RCA angiography performed in multiple views. cedwards 01:11 PM Catheter removed cedwards 01:11 PM HR=76 bpm, NIBP=93/68 mmhg, SpO2=94.0 %, Resp=19 B/min, EtCO2=32 mmHg 01:12 PM 5Fr FL 3.5 catheter inserted over the wire [facility] cedwards 01:12 PM Lesion found in Proximal RCA. Pre Stenosis: 30 Pre CLOTILDE Flow: cedwards 01:12 PM Coronary Dominance: right cedwards 01:13 PM LCA angiography performed in multiple views. cedwards 01:14 PM Lesion found in Mid LAD. Pre Stenosis: 20 Pre CLOTILDE Flow: cedwards 01:16 PM HR=75 bpm, NIBP=93/71 mmhg, SpO2=95.0 %, Resp=22 B/min 01:17 PM Catheter removed cedwards 01:17 PM Procedure completed at 13:17 08/31/2017 cedwards 01:17 PM Did you address CLOTILDE flow and Dominance? Yes cedwards 01:18 PM Sign out completed: Radiation Dose 190.78 mGy, 16.3524 Gy/cm2 Fluoro Time: 2.3 Isovue 370 - 200ml contrast 57 ml given by Sae Herrera MD, [facility]. Complications: NoneCardiac Rehab Consult needed: NoConfirmed administered medications: Yes cedwards 01:18 PM Isovue 370 - 200ml,1 Bottle(s) used. cedwards 01:18 PM 12 ml air in Vasc Band. cedwards 01:19 PM Estimated Blood Loss: minimal cedwards 01:19 PM Post ECG NSR cedwards 01:19 PM Post Blood Pressure 93/71 cedwards 01:19 PM Information taught Cardiac Cath and Vasc Band cedwards 01:19 PM Education needs Procedure, Plan of Care, and Disease Process cedwards 01:19 PM Learning barriers :None cedwards 01:19 PM Education Methods Verbal cedwards 01:19 PM Education evaluation Able to repeat information cedwards 01:19 PM Site status No bleeding/hematoma - Rt Wrist as reported by Lance Sweeney RT (R) at 13:19 cedwards 01:20 PM Plavix, Effient or Brilinta given No cedwards 01:20 PM Family placed in consult room. cedwards 01:21 PM Report given to Nicole PURCELL Pt taken to 2A Room #12. 13:21 cedwards 01:22 PM Complications: None cedwards Complications Complication None None Hemodynamics Post Procedure Information Blood Pressure: 93/71 mmHg Rhythm: NSR Post procedural instructions were given Site Checks Time Location Status Staff Sheath In? Note 01:19 PM Rt Wrist No bleeding/hematoma Lance Sweeney RT (R) Pulses Time Site Pre-Procedure Post-Procedure Note Bilateral DP & PT 2+ Bilateral radial 2+ Updated by Christophe Acosta RN on 08/31/2017 1:27:10 PM electronically signed on 08/31/2017 1:29:21 PM with status of Final
--- NOTE | 2017-08-31 14:48 | Discharge Summary ---
<Brannon Bowden Stella - Last Filed: 08/31/17 15:28> - NOTES TO OUTPATIENT PROVIDER Notes to Outpatient Provider: Patient was seen at [place] for dizziness/weakness, found to be in SVT, converted to sinus with adenosine. Transferred to [facility] for cardiology consult, stress test inconclusive, cath negative. Will discharge on beta digna. Aortic stenosis should be followed outpatient. Orders not resulted at time of discharge: Pending orders 08/29/17 07:00 NM johnny perf SPECT multi [NM] Routine 08/30/17 11:56 CL Cardiac Catheterization [CL] Routine CL Cardiac Catheterization [CL] Routine Date of Encounter: 08/31/17 Time of Encounter: 14:33 - Discharge Diagnosis (1) SVT (supraventricular tachycardia) Priority: Secondary Status: Resolved Assessment and Plan: Patient was found to be in SVT at [place] and was converted to sinus with adenosine. He has been in sinus rhythm since admission, and is sinus rhythm at discharge. (2) Aortic stenosis Priority: Secondary Status: Chronic Assessment and Plan: Patient has documented findings of aortic calcification and stenosis on echocardiogram. Cardiology recommended outpatient follow up. Qualifiers: Cardiac valve disease etiology: etiology unspecified Qualified Code(s): I35.0 - Nonrheumatic aortic (valve) stenosis (3) Abnormal stress test Priority: Primary Status: Resolved Assessment and Plan: Patient had abnormal stress test test at admission, [facility] today found no significant coronary artery disease. He is stable for discharge and outpatient follow up. Hospital course: Mr. Salomon is a 67 year old male who presented to [place] with dizziness and weakness after an especially physically laborious day at work. He was found to be in SVT and was converted to sinus rhythm with adenosine. He was transferred to [facility] for cardiology work up. On admission his vital signs were stable and he was asymptomatic. Stress test was planned for the next day. Perfusion defect found on nuclear stress test, cath was scheduled. Left Heart catheterization was performed on day of discharge and found no evidence of ischemia. Cardiology recommended discharge and outpatient follow up. Patient is medically stable and we are discharging patient on home meds and metoprolol. Discharge discussed with: patient, family - Time Spent with Patient Total time spent providing and/or coordinating discharge services: - Discharge Medications Prescriptions: Metoprolol XL (24 HR) Succ [Toprol Xl] 25 mg PO DAILY #30 tab.er.24h Home Medications: Atorvastatin [Lipitor] 40 mg PO HS 08/27/17 [History] Ferrous Sulfate [Iron] 325 mg PO DAILY 08/28/17 [History] Metoprolol XL (24 HR) Succ [Toprol Xl] 25 mg PO DAILY #30 tab.er.24h 08/31/17 [ Rx] Allergies/Adverse Reactions: 3 Allergy/AdvReac Type Severity Reaction Status Date / Time No Known Allergies Allergy Verified 08/27/17 19:13 Date of admission: 08/28/17 12:26 Primary care physician: Brian Chung DO Consults: 08/28/17 13:42 Consult to Cardiology [CONS] Routine Comment: Consulting Provider: Cardiology Sharla Reason for Consult: SVT, elevated troponin Call Completed: Yes Discharging clinician: Brannon Bowden Anticipated date of discharge: 08/31/17 - Constitutional Vitals: Temp Pulse Resp BP Pulse Ox 97.7 F 67 16 121/78 96 08/31/17 11:35 08/31/17 11:35 08/31/17 11:35 08/31/17 11:35 08/31/17 11:35 Exam: Patient in no acute distress Alert and oriented x 3 Heart in regular rate and rhythm, systolic murmur no gallop Lungs clear to auscultation without wheeze, rhonchi or diminished cortez Abdomen soft and non tender Skin warm and dry Legs non edematous - Patient Status Disposition: Home, Self-Care Condition: Good Functional capacity at discharge: independent ambulation Overall status at discharge: patient is back to baseline - Discharge Instructions Instructions: Metoprolol (By mouth), Left Heart Catheterization (DC) Follow Up With: NONE,PCP [Non-Partnered Physician] - - Diet and Activity Activity: increase activity as tolerated Diet: low fat, low cholesterol, low salt diet <Tay Ahn - Last Filed: 08/31/17 16:23> Orders not resulted at time of discharge: Pending orders 08/29/17 07:00 NM johnny perf SPECT multi [NM] Routine 08/30/17 11:56 CL Cardiac Catheterization [CL] Routine CL Cardiac Catheterization [CL] Routine Date of Encounter: 08/31/17 - Discharge Diagnosis (1) Aortic stenosis Status: Chronic Qualifiers: Cardiac valve disease etiology: etiology unspecified Qualified Code(s): I35.0 - Nonrheumatic aortic (valve) stenosis (2) SVT (supraventricular tachycardia) Status: Resolved (3) Abnormal stress test Status: Resolved Hospital course: Mr. Salomon is a 67 year old male - Time Spent with Patient Total time spent providing and/or coordinating discharge services: Date of admission: 08/28/17 12:26 Primary care physician: Brian Chung DO Consults: 08/28/17 13:42 Consult to Cardiology [CONS] Routine Comment: Consulting Provider: Cardiology Sharla Reason for Consult: SVT, elevated troponin Call Completed: Yes - Constitutional Vitals: Temp Pulse Resp BP Pulse Ox 97.7 F 67 16 121/78 96 08/31/17 11:35 08/31/17 11:35 08/31/17 11:35 08/31/17 11:35 08/31/17 11:35 - Attending Attestation Patient was seen and examined. I agree with the discharge summary as dictated above by the resident physician. Discharge plans and recommendations were made under my direct supervision.
== END 2017-08-31 15:57 | disposition home or self-care (01) | DRG 287 ==
LOC: 2ANU
PROVIDERS: ADMIT Internal Medicine; ATTEND Student in an Organized Health Care Education/Training Program

== ENCOUNTER 2017-10-21 14:42 | Observation (INO) ==
--- NOTE | 2017-10-21 20:17 | Internal Med History&Physical ---
Date of Encounter: 10/21/17 Time of Encounter: 20:14 Internal Medicine - H&P: HPI Chief complaint: dizziness Admitted From: Home Plans for Post Hospital Care: Home History of present illness: 67 year old man who is a former smoker with a history of aortic stenosis who was seen in August 2017 for dizziness and lightheadedness after doing strenuous manual labor and was found to be in SVT that did not respond to vagal maneuvers and converted only with adenosine. On review of old records, it is seen that he had a nuclear stress test that could not exclude mild ischemia and a subsequent cardiac cath that showed a severely calcified aortic valve and mild coronary artery disease. Today he states that his job duties have been curtailed because of that event and does not do much physical activity. 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 He then called his who took him to [place]. There he was found to be in SVT at 173bpm, receiving 1 dose of adenosine with a subsequent EKG showing a HR of 85bpm and 1 st degree AV block. Blood tests were done which were grossly unremarkable except a mild troponin elevation of 0.12 and is transferred here for further observation. He reports feeling well at this time and has no complaints. He denies chest pain and dyspnea. He confirms he was discharged on 25mg metoprolol succinate however he states that he has only been taking 12.5mg as his blood pressure became low with the full 25mg dose. He acknowledges that yesterday he packed sand bags and did more physical labor than he usually has done since the prior episode but that today he was only opening farris. 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 Low Iron. SVT Psychiatric history: no psych history - Past Surgical History Additional surgical history: Right shoulder and knee - Social History Smoking Status: Former smoker Smokeless Tobacco Status: No Alcohol use: none Drug use: none - Family History Mother Living Status: Hx Family Cardiac Disorders: Yes ([place]) Internal Medicine - H&P: Meds Atorvastatin [Lipitor] 10 mg PO HS 08/27/17 [History] Ferrous Sulfate [Iron] 325 mg PO DAILY 08/28/17 [History] Metoprolol XL (24 HR) Succ [Toprol Xl] 12.5 mg PO DAILY 10/21/17 [History] 3 Allergy/AdvReac Type Severity Reaction Status Date / Time No Known Allergies Allergy Verified 08/27/17 19:13 All Systems PM: A 10-system review of systems was performed and is negative for pertinent findings except as documented above in the HPI. - Constitutional Vitals: Temp Pulse Resp BP Pulse Ox 98.4 F 81 16 110/80 95 10/21/17 18:33 10/21/17 18:33 10/21/17 18:33 10/21/17 18:33 10/21/17 18:33 Exam: Vitals: Reviewed General: Well-developed, NAD Skin: No lesions or ulcers. HEENT: Moist mucous membranes. No conjunctivae pallor. Neck: No lymphadenopathy. No JVD. No palpable thyroid. Chest: Normal thoracic expansion. Normal breath sounds. Clear to auscultation. Heart: Normal S1 & S2; rhythmic. Systolic aortic ejection murmur IV/. Abdomen: Non-distended, soft and non-tender to palpation. No peritoneal reaction. Liver is normal in size. Spleen is not palpable. Extremities: No clubbing, cyanosis or edema. No calf tenderness. Normal distal pulses. Neurological: Awake, alert and oriented to person, place and time. No focal deficits. Psych: Affect appropriate. - Assessment and plan (1) SVT (supraventricular tachycardia) Current Visit: Yes Status: Acute Assessment and plan: Unclear etiology; may be related to the strenuous activity done a day prior however one would presume it would have occurred in tandem. His cardiac cath from 2 months ago was not overly concerning and showed only mild disease. He may require electrophysiologic studies at this point. Will obtain cardiology consultation. Monitor on telemetry. Resume metoprolol succinate 25mg daily if BP permits. (2) Elevated troponin Current Visit: Yes Status: Acute Assessment and plan: Likely secondary to demand ischemia from the SVT episode. Old records show that the same thing happened on the last episode and the troponins did not go down to normal even before discharge and his work up for aute ischemia was negative. (3) Aortic stenosis Current Visit: Yes Status: Chronic Assessment and plan: Moderate in severity based on mean gradient and valve area. Could be contributing SVT? Will need cardiology follow up to determine if valve replacement is needed or when. Qualifiers: Cardiac valve disease etiology: etiology unspecified Qualified Code(s): I35.0 - Nonrheumatic aortic (valve) stenosis (4) DVT prophylaxis Current Visit: Yes Status: Acute Assessment and plan: SubQ heparin ordered. - Time Spent With Patient Total time spent is greater than 50% in coordination of care (as documented) at patient's floor/unit and/or counseling patient: Greater than 35 minutes
[2017-10-21] MEDS: *HR* Heparin 5,000 UNIT/ML VIAL SQ SCH (20:32)
[2017-10-22] MEDS: *HR* Heparin 5,000 UNIT/ML VIAL SQ SCH (05:11)
[2017-10-22] MEDS ORDERED: Aspirin 81 MG TAB.CHEW PO SCH (09:00)
[2017-10-22] MEDS ORDERED: Metoprolol XL (24 HR) Succ 25 MG TAB.ER.24H PO SCH (09:00)
--- NOTE | 2017-10-22 11:10 | Event Note ---
Date of Encounter: 10/22/17 Time of Encounter: 11:00 - Cardiology Event Note Per discussion with Dr. 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 Full consult to be done by Dr. Luong. Cardiology digning off, re-consult PRN, anticipate DC today.
[2017-10-22 11:43] VITALS: BP 119/76
--- NOTE | 2017-10-22 12:40 | Cardiology Consult Note ---
Date of Encounter: 10/22/17 Time of Encounter: 11:00 Assessment and Plan (1) SVT (supraventricular tachycardia) Current Visit: Yes Status: Acute EKG consistent with short RP tachycardia, likely AVNRT. Patient is currently in sinus rhythm and is asymptomatic. Discussed with evs tech on the possibility of EP study and ablation. This will be scheduled as outpatient. Meanwhile we recommend metoprolol 25 mg twice daily. He was also counseled on vagal maneuvers in the event of another episode of SVT. (2) Aortic stenosis Current Visit: Yes Status: Chronic Moderate calcific aortic valve stenosis. We will follow-up with serial echocardiogram in 6-12months. Qualifiers: Cardiac valve disease etiology: etiology unspecified Qualified Code(s): I35.0 - Nonrheumatic aortic (valve) stenosis (3) Coronary artery disease Current Visit: Yes Status: Chronic Mild coronary disease on angiogram. Continue aspirin 81 mg daily and moderate intensity statin. Qualifiers: Coronary Disease-Associated Artery/Lesion type: [place] artery [place] vs. transplanted heart: [place] heart Associated angina: without angina Qualified Code(s): I25.10 - Atherosclerotic heart disease of [place] coronary artery without angina pectoris Discussion w patient/family: The assessment and plan as outlined above was discussed with the patient and/or family members who expressed understanding and agreement. All questions were answered. Thank you for involving us in the care of your patient. Please call with any questions. History of Present Illness Consult date: 10/22/17 Requesting physician: Alonzo Eden Consult reason: SVT Chief complaint: Palpitations History of present illness: Mr. Salomon is a 67 year old pleasant gentleman with a history of rheumatic fever, aortic stenosis, and non-obstructive CAD, who first experienced palpitations in August this year upon which he presented to the emergency room and was found to be in SVT and was terminated with adenosine intravenously. He was discharged on 25mg metoprolol succinate however he states that he has only been taking 12.5mg as his blood pressure became low with the full 25mg dose. 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 There he was found to be in SVT at 173bpm, receiving a dose of adenosine with a subsequent subsequent determination of the SVT. He denies chest pain and dyspnea or diaphoresis. He did not pass out. He has remained in sinus rhythm since admission and has no complaints at this time. His cardiac history includes echo done 07/21/2017 showed normal EF of 60%, mild diastolic dysfunction. Heavily calcified aortic valve leaflets. Moderate aortic stenosis. Mean gradient 27 mmHg. Peak velocity 3.35 m/s.Trace aortic regurgitation. Mild mitral regurgitation. Mildly dilated aortic root measuring 4.0 cm Cardiac cath on 08/31/2017 showed mild RCA disease. 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 Low Iron. SVT Psychiatric history: no psych history - Past Surgical History Additional surgical history: Right shoulder and knee - Social History Smoking Status: Former smoker Smokeless Tobacco Status: No Alcohol use: none Drug use: none - Family History Mother Living Status: Hx Family Cardiac Disorders: Yes ([place]) Medications and Allergies Atorvastatin [Lipitor] 10 mg PO HS 08/27/17 [History] Ferrous Sulfate [Iron] 325 mg PO DAILY 08/28/17 [History] Metoprolol XL (24 HR) Succ [Toprol Xl] 25 mg PO DAILY 30 Days #30 tab.er.24h [Rx] 3 Allergy/AdvReac Type Severity Reaction Status Date / Time No Known Allergies Allergy Verified 08/27/17 19:13 All Systems Review: The remainder of the systems were reviewed and are negative - Constitutional Constitutional: no anorexia, no chills, no fatigue, no fever(s), no headache(s) , no lethargy, no malaise - EENT Eyes: no blurred vision Nose, mouth and throat: no bleeding gums, no dysphagia, no odynophagia - Cardiovascular Cardiovascular: no chest pain at rest, no chest pain with exertion, no diaphoresis, no leg edema - Respiratory Respiratory: no cough, no dyspnea - Gastrointestinal Gastrointestinal: no abdominal pain, no dysphagia - Genitourinary Genitourinary: no dysuria - Musculoskeletal Musculoskeletal: no abnormal gait - Integumentary Integumentary: no unusual bruising - Neurological Neurological: no abnormal speech, no loss of vision - Psychiatric Psychiatric: no anxiety - Hematological/Lymphatic Hematologic/Lymphatic: no easy bleeding Physical Examination Vital Signs, Last 4 Hours Temp Pulse Resp BP Pulse Ox 10/22/17 11:07 97.9 F 64 16 119/76 99 General: Conversant, No Apparent Distress Neck: No JVD, Normal carotid pulses Cardiac: Reg Rate and Rhythm, Other (mid peaking ejection systolic murmur radiating to the carotids,soft A2) Lungs: Normal Breath Sounds, No Wheeze, Rales, Rhonchi Neuro: Alert and responsive Abdomen: Soft Musculoskeletal: No Chest Wall Tenderness Extremities: No Clubbing, No Cyanosis, No Edema, Normal Pulses Results Lab Results 10/21/17 10/22/17 21:46 06:04 Troponin I 0.13 H* 0.09 H* Consult Discharge Plan - Plan Additional Instructions: FOLLOW-UP WITH DR. MAYO JOHNSTON, EP CARDIOLOGY -- LAST (RECURRENT SVT). SICK LEAVE -- 10/21-10/25/2017. RESUME WORKING ON 10/26/2017. Referrals: Brian Chung DO [Primary Care Provider] - Prescriptions: Metoprolol XL (24 HR) Succ [Toprol Xl] 25 mg PO DAILY 30 Days #30 tab.er.24h
--- NOTE | 2017-10-22 12:51 | Discharge Summary ---
Date of Encounter: 10/22/17 Time of Encounter: 12:49 - Discharge Diagnosis (1) SVT (supraventricular tachycardia) Priority: Primary Status: Acute (2) Elevated troponin Priority: Primary Status: Acute (3) Coronary artery disease Priority: Secondary Status: Chronic Qualifiers: Coronary Disease-Associated Artery/Lesion type: [place] artery [place] vs. transplanted heart: [place] heart Associated angina: without angina Qualified Code(s): I25.10 - Atherosclerotic heart disease of [place] coronary artery without angina pectoris (4) Aortic stenosis Priority: Secondary Status: Chronic Qualifiers: Cardiac valve disease etiology: etiology unspecified Qualified Code(s): I35.0 - Nonrheumatic aortic (valve) stenosis (5) HLD (hyperlipidemia) Priority: Secondary Status: Chronic Qualifiers: Hyperlipidemia type: unspecified Qualified Code(s): E78.5 - Hyperlipidemia , unspecified (6) Anemia, iron deficiency Priority: Secondary Status: Chronic Qualifiers: Iron deficiency anemia type: unspecified iron deficiency Qualified Code(s) : D50.9 - Iron deficiency anemia, unspecified Hospital course: This is a 67-year-old male. It was yesterday afternoon, when he experienced a feeling of heart palpitation with mild dyspnea but not chest pain. He came to our emergency room. He was found to have SVT with heart rate of 173. It was treated successfully with injection of IV adenosine. The patient had a similar episode of SVT several weeks before; again, treated successfully with IV adenosine. Cardiology was consulted. 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 They recommend a visit with EP crew team member for possible ablation. One can see mildly elevated troponin of 0.13 and 0.09, likely representing demand ischemia secondary to SVT. The patient does have underlying coronary artery disease; nonobstructive. The patient does have underlying moderate calcified aortic stenosis. This requires some follow-up with every 612 months echocardiogram. CONDITION AT DISCHARGE: The patient feels good. He is not voicing any symptoms. Denies chest pain, dyspnea, coughing and wheezing. Skin: Free of rash and discoloration. Respiratory: Normal breath sounds with no crackles and wheezes bilaterally. CV: Heart is regular with no gallop or murmur. GI: Abdomen is flat and soft with no palpable mass or visceromegaly. Neuro exam: There is no focal deficits. Normal speech, swallowing and gait. SEE DISCHARGE ORDERS/MEDICATIONS.. He will be on increased dose of Toprol-XL. He will see an EP crew team member. - Time Spent with Patient Total time spent providing and/or coordinating discharge services: Greater than 30 minutes (35 minutes) - Discharge Medications Prescriptions: Metoprolol XL (24 HR) Succ [Toprol Xl] 25 mg PO DAILY 30 Days #30 tab.er.24h Home Medications: Atorvastatin [Lipitor] 10 mg PO HS 08/27/17 [History] Ferrous Sulfate [Iron] 325 mg PO DAILY 08/28/17 [History] Metoprolol XL (24 HR) Succ [Toprol Xl] 25 mg PO DAILY 30 Days #30 tab.er.24h [Rx] Allergies/Adverse Reactions: 3 Allergy/AdvReac Type Severity Reaction Status Date / Time No Known Allergies Allergy Verified 08/27/17 19:13 Date of admission: 10/21/17 16:00 Primary care physician: Brian Chung DO Consults: 10/21/17 20:01 Consult to Cardiology [CONS] Routine Comment: Consulting Provider: Cardiology Sharla Reason for Consult: Patient known to cardiology for SVT. Presents with a recurrence requiring adenosine. Has been on 12.5mg daily of Toprol XL. No known inciting triggers. Call Completed: No Discharging clinician: Alonzo Eden Anticipated date of discharge: 10/22/17 - Constitutional Vitals: Temp Pulse Resp BP Pulse Ox 97.9 F 64 16 119/76 99 10/22/17 11:07 10/22/17 11:07 10/22/17 11:07 10/22/17 11:07 10/22/17 11:07 General appearance: Present: A&O X 3, no acute distress, answers questions appropriately Exam: xxx - Patient Status Disposition: Home, Self-Care Condition: Good Functional capacity at discharge: independent ambulation Overall status at discharge: patient is back to baseline - Discharge Instructions Instructions: Coronary Artery Disease (DC), Supraventricular Tachycardia (DC), Hyperlipidemia (DC) Follow Up With: Brian Chung DO [Primary Care Provider] - Additional Instructions: FOLLOW-UP WITH DR. MAYO JOHNSTON, EP CARDIOLOGY -- LAST (RECURRENT SVT). SICK LEAVE -- 10/21-10/25/2017. RESUME WORKING ON 10/26/2017. - Diet and Activity Activity: resume usual activities as tolerated - VTE Reasons for not Prescribing Prophylaxis: Treatment not Indicated - Low risk for VTE Deep Vein Thrombosis/Pulmonary Embolism Present on Admission: No
== END 2017-10-22 13:59 | disposition home or self-care (01) ==
LOC: 3BNU → SUATTDRO 16:00
PROVIDERS: ADMIT Internal Medicine; ATTEND Internal Medicine